=== PATIENT | female | born 2005 | race Asian ===

== ENCOUNTER 2024-05-20 15:55 | Outpatient (CLI) | payer OTHER, SELFPAY ==
[2024-05-20 16:44] LABS: Albumin* 4.8 g/dL (3.3-5.0)
[2024-05-20 16:46] LABS: Cholesterol* 130 mg/dL (90-199)
[2024-05-20 16:47] LABS: Alanine Aminotransferase* 16 U/L (4-35); Alkaline Phosphatase* 58 U/L (40-150); Aspartate Amino Transferase* 25 U/L (12-35); Bilirubin Direct* 0.1 mg/dL (0.0-0.5); Bilirubin Total* 0.4 mg/dL (0.1-1.5); HDL Cholesterol* 55 mg/dL (>=50); LDL Cholesterol Calculated 64 mg/dL (<100); Total Protein* 7.6 g/dL (6.0-8.3); Triglycerides* 53 mg/dL (40-149)
[2024-05-20 17:07] LABS: HCG Quantitative* < 2.39 mIU/mL
== END 2024-05-20 15:56 | disposition home or self-care (01) ==
PROVIDERS: Visit Provider Nurse Practitioner Family
DX: L70.0 Acne vulgaris (principal)
CPT/HCPCS: 36415; 80061; 80076; 84702